=== PATIENT | female | born 1930 | race Caucasian/White ===

== ENCOUNTER → 2016-08-07 | Outpatient (CLI) | payer MEDICARE, BC ==
--- NOTE | 2016-08-07 12:22 | MR ---
EXAMINATION TYPE: MR brain/cspine wo/w DATE OF EXAM: 08/07/2016 11:43 AM COMPARISON: NONE HISTORY: Breast cancer and hallucinations per order. Left-sided headache with pain in neck for 3 melanie hs per patient. TECHNIQUE: Multiplanar, multisequence images of the cervical spine, brain, and brainstem are all performed witho ut and with IV contrast, utilizing 14 mL intravenous MultiHance . FINDINGS: Exam is noted suboptimal secondary to patient motion BRAIN: Diffusion weighted images demonstrate no evidence of a recent infarct or other diffusion abnormality. There is no worrisome extra-axial fluid collection. There is ventricular and sulcal prominence cons istent with mild age-related cerebral atrophy. There are focal and confluent areas of T2 hyperintensi ty seen throughout the deep and periventricular white matter bilaterally. Lesions are nonspecific in appearance and distribution but most likely on basis of product of chronic small vessel ischemic bailey ge in patient of this age. Midline structures demonstrate normal morphology. The craniocervical junction appears within normal limits. Post contrast images demonstrate no abnormal enhancement. The dural venous sinuses appear pa tent. The visualized sinuses are clear and the globes are intact. IMPRESSION: Mild age-related cerebral atrophy and advanced nonspecific white matter changes likely on basis of product of chronic small vessel ischemic change in patient of this age. No suspicious enhan cing intraparenchymal mass is noted. C-SPINE: FINDINGS: Sagittal images of the cervical spine show the craniocervical junction to appear within nor mal limits. The cervical and upper thoracic spinal cord is normal in course, caliber, and signal. V ertebral alignment is anatomic. The vertebral body heights are normal. There is moderate disc space narrowing C3-C4 level and C6-C7 level. Posterior disc herniations are seen effacing anterior thecal s ac at C5-C6 and C6-C7 level on sagittal images. The bone marrow signal intensity is within normal mtz its. No suspicious postcontrast enhancement is seen. No significant spurring is noted. Axial images show the C2-C3 and C3-C4 levels to appear within normal limits. Axial images at C4-C5 level show uncovertebral facet degenerative changes bilaterally with asymmetric mild left-sided neural foraminal narrowing. There is broad-based central disc protrusion minimally e ffacing anterior thecal sac. Axial images at C5-C6 level shows central broad-based disc protrusion effacing anterior thecal sac u p to ventral surface of spinal cord on axial image 20 and causing asymmetric moderate left and mild r ight-sided neural foraminal narrowing. Axial images at C6-C7 level show broad-based posterior disc protrusion effacing anterior thecal sac a nd causing mild left greater than right neural foraminal narrowing near axial image 15. Axial images at C7-T1 level are felt within normal limits. There is 8mm T2 round hyperintense lesion in left thyroid lobe on axial image 9 but is showing fairly homogeneous postcontrast enhancement and thus warrants follow-up. IMPRESSION: 1. Multilevel degenerative changes in cervical spine most prominent at C5-C6 and C6-C7 level as detai led above. 2. Enhancing 8 mm nodule left thyroid lobe, thyroid ultrasound follow-up advised to better evaluate a nd characterize.
== END ==
LOC: RADMRIMAIN 10:10
PROVIDERS: ATTEND Internal Medicine Hematology & Oncology
DX: R44.2 Other hallucinations (principal); M50.31 Other cervical disc degeneration, high cervical region; E04.1 Nontoxic single thyroid nodule
CPT/HCPCS: 70553; 72156; A9577

== ENCOUNTER 2019-02-04 22:09 | Emergency (ER) | payer MEDICARE, BC ==
[2019-02-04 22:14] VITALS: RESP 18; TEMP 97.9
[2019-02-04] MEDS ORDERED: MORPHINE SULFATE 4 MG/ML SYRINGE IV STA (22:57)
[2019-02-04 23:13] LABS: Albumin 3.9 g/dL (3.5-5.0); Calcium 9.8 mg/dL (8.4-10.2); Potassium 4.4 mmol/L (3.5-5.1); Total Bilirubin 0.1 mg/dL (0.2-1.3); Total Protein 6.6 g/dL (6.3-8.2)
[2019-02-04 23:17] LABS: Basophils % (A) 1 %; Eosinophils # (A) 0.1 k/uL (0-0.7); Eosinophils % (A) 2 %; HCT 37.8 % (34.0-46.0); HGB 12.1 gm/dL (11.4-16.0); Hypochromasia Slight; Lymphocytes % (A) 19 %; MCV 141.9 fL (80.0-100.0); Macrocytosis Marked; Mean Platelet Volume 6.2; Monocytes # (A) 0.3 k/uL (0-1.0); Monocytes % (A) 5 %; Neutrophils # (A) 3.9 k/uL (1.3-7.7); Neutrophils % (A) 70 %; Platelet Count 689 k/uL (150-450); RBC 2.66 m/uL (3.80-5.40); RDW 14.2 % (11.5-15.5); WBC 5.5 k/uL (3.8-10.6)
[2019-02-04 23:19] LABS: MCH 45.3 pg (25.0-35.0)
--- NOTE | 2019-02-04 23:22 | CT ---
EXAMINATION TYPE: CT brain wo con for TPA DATE OF EXAM: 02/04/2019 COMPARISON: HISTORY: Right-sided weakness CT DLP: mGycm Automated exposure control for dose reduction was used. FINDINGS: There is some patchy hypodensity in the periventricular white matter. There is no mass effect nor mid line shift. There is no sign of intracranial hemorrhage. Calvarium is intact. 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 IMPRESSION: CHRONIC SMALL VESSEL ISCHEMIA. NO ACUTE INTRACRANIAL ABNORMALITY.
[2019-02-04 23:24] LABS: INR 0.9 (<1.2); Prothrombin Time 9.7 sec (9.0-12.0)
--- NOTE | 2019-02-04 23:24 | XR ---
EXAMINATION TYPE: XR chest 1V portable DATE OF EXAM: 02/04/2019 COMPARISON: NONE HISTORY: Altered mental status TECHNIQUE: Single frontal view of the chest is obtained. FINDINGS: Heart is normal. There is no heart failure. Lungs are clear of consolidation. There is no pleural effusion. There are numerous surgical clips at the left axilla. IMPRESSION: No active cardiopulmonary disease. Normal heart.
[2019-02-04 23:31] VITALS: PULSE 80
--- NOTE | 2019-02-05 00:02 | ED ---
General Adult HPI - General Chief complaint: Extremity Problem,Nontraumatic Stated complaint: Arm pain Time Seen by Provider: 02/04/19 22:21 Source: patient Mode of arrival: wheelchair Limitations: no limitations - History of Present Illness Initial comments: This patient is an 88-year-old woman presenting to be evaluated for right arm and right leg numbness. The patient states that it started approximately one hour ago. She states that it did remind her of a previous stroke that she had over 20 years ago though at that time she had weakness. Patient states that she took an aspirin, and then her family felt she should be seen in the emergency d epartment. The patient states that her symptoms have completely resolved now. She did not have weakness at the time. She is not having headache or any other neurologic symptoms. Onset/Timin -: hour(s) Location: right, upper extremity, lower extremity Radiation: non-radiation Consistency: now resolved Improves with: other Worsens with: none (Continuously) Associated Symptoms: denies other symptoms Treatments Prior to Arrival: Aspirin - Related Data Home Medications Medication Instructions Recorded Confirmed Aspirin 325 mg PO DAILY 02/04/19 02/04/19 Benazepril HCl 20 mg PO DAILY 02/04/19 02/04/19 Calcium Citrate 200mg 200 mg PO DAILY 02/04/19 02/04/19 Cholecalciferol [Vitamin D3 (25 1,000 unit PO DAILY 02/04/19 02/04/19 Mcg = 1000 Iu)] Hydroxyurea [Hydrea] 500 mg PO DAILY 02/04/19 02/04/19 Vit C/E/Zn/Coppr/Lutein/Zeaxan 1 cap PO BID 02/04/19 02/04/19 [Preservision Areds 2 Softgel] amLODIPine [Norvasc] 10 mg PO DAILY 02/04/19 02/04/19 Allergies Allergy/AdvReac Type Severity Reaction Status Date / Time codeine Allergy Unknown Verified 02/04/19 22:23 Penicillins Allergy Unknown Verified 02/04/19 22:23 Latex, Natural Rubber AdvReac Rash/Hives Verified 02/04/19 22:23 Review of Systems ROS Statement: Those systems with pertinent positive or pertinent negative responses have been documented in the HPI. ROS Other: All systems not noted in ROS Statement are negative. Constitutional: Denies: fever, chills, weakness Eyes: Denies: eye pain, vision change Respiratory: Denies: cough, dyspnea Cardiovascular: Denies: chest pain, palpitations, syncope Gastrointestinal: Denies: abdominal pain, nausea, vomiting Genitourinary: Denies: dysuria, frequency Musculoskeletal: Denies: back pain Skin: Denies: rash Neurological: Reports: numbness. Denies: headache, weakness, confusion, abnormal gait, vertigo Hematological/Lymphatic: Denies: easy bleeding Past Medical History Past Medical History: Cancer, CVA/TIA Additional Past Medical History / Comment(s): breast cancer History of Any Multi-Drug Resistant Organisms: None Reported Past Surgical History: Orthopedic Surgery Past Psychological History: No Psychological Hx Reported Smoking Status: Current every day smoker Past Alcohol Use History: Occasional Past Drug Use History: None Reported General Exam Limitations: no limitations General appearance: alert, in no apparent distress Head exam: Present: atraumatic, normocephalic Eye exam: Present: normal appearance. Absent: scleral icterus, conjunctival injection ENT exam: Present: normal oropharynx Neck exam: Present: normal inspection, other (No carotid bruit) Respiratory exam: Present: normal lung sounds bilaterally. Absent: respiratory distress, wheezes, rales, rhonchi, stridor Cardiovascular Exam: Present: regular rate, normal rhythm, normal heart sounds. Absent: systolic murmur, diastolic murmur, rubs, gallop GI/Abdominal exam: Present: soft. Absent: distended, tenderness, guarding, rebound Extremities exam: Present: normal inspection, normal capillary refill. Absent: pedal edema, calf tenderness Back exam: Present: normal inspection. Absent: CVA tenderness (R), CVA tenderness (L) Neurological exam: Present: alert, oriented X3, CN II-XII intact. Absent: motor sensory deficit Skin exam: Present: warm, dry, intact, normal color. Absent: rash Course Vital Signs 02/04/19 02/04/19 22:10 23:29 Temperature 97.9 F Pulse Rate 96 80 Respiratory 18 18 Rate Blood Pressure 164/80 149/75 O2 Sat by Pulse 98 98 Oximetry EKG Findings - EKG Comments: EKG Findings:: Possible old inferior infarct, based on Q waves in lead III. - EKG Results: EKG: interpreted by ERMD, sinus rhythm (Rate 77 bpm), normal axis, normal ST/T Medical Decision Making - Medical Decision Making Patient is an 88-year-old woman presenting with right-sided numbness consistent with TIA. The patient's ABCD 2 score is indicative of low risk. The patient states that she does want to go home and she does not want stay in the hospital to have neurology evaluation. I discussed the appropriate follow-up and further care, and she is aware that she needs to return immediately should she experience any recurrence or if any new symptoms develop. - Lab Data Result diagrams: 02/04/19 22:53 02/04/19 22:53 Lab Results 02/04/19 02/04/19 02/04/19 Range/Units 22:53 22:53 22:53 WBC 5.5 (3.8-10.6) k/uL RBC 2.66 L (3.80-5.40) m/uL Hgb 12.1 (11.4-16.0) gm/dL Hct 37.8 (34.0-46.0) % MCV 141.9 H (80.0-100.0) fL MCH 45.3 H (25.0-35.0) pg MCHC 32.0 (31.0-37.0) g/dL RDW 14.2 (11.5-15.5) % Plt Count 689 H (150-450) k/uL Neutrophils % 70 % Lymphocytes % 19 % Monocytes % 5 % Eosinophils % 2 % Basophils % 1 % Neutrophils # 3.9 (1.3-7.7) k/uL Lymphocytes # 1.0 (1.0-4.8) k/uL Monocytes # 0.3 (0-1.0) k/uL Eosinophils # 0.1 (0-0.7) k/uL Basophils # 0.0 (0-0.2) k/uL Manual Slide Review Performed Hypochromasia Slight Macrocytosis Marked A PT 9.7 (9.0-12.0) sec INR 0.9 (<1.2) APTT 24.0 (22.0-30.0) sec Sodium 140 (137-145) mmol/L Potassium 4.4 (3.5-5.1) mmol/L Chloride 107 (98-107) mmol/L Carbon Dioxide 26 (22-30) mmol/L Anion Gap 7 mmol/L BUN 20 H (7-17) mg/dL Creatinine 0.74 (0.52-1.04) mg/dL Est GFR (CKD-EPI)AfAm 86 (>60 ml/min/1.73 sqM) Est GFR (CKD-EPI)NonAf 74 (>60 ml/min/1.73 sqM) Glucose 116 H (74-99) mg/dL Calcium 9.8 (8.4-10.2) mg/dL Total Bilirubin 0.1 L (0.2-1.3) mg/dL AST 19 (14-36) U/L ALT 16 (9-52) U/L Alkaline Phosphatase 124 (38-126) U/L Troponin I (0.000-0.034) ng/mL Total Protein 6.6 (6.3-8.2) g/dL Albumin 3.9 (3.5-5.0) g/dL 02/04/19 Range/Units 22:53 WBC (3.8-10.6) k/uL RBC (3.80-5.40) m/uL Hgb (11.4-16.0) gm/dL Hct (34.0-46.0) % MCV (80.0-100.0) fL MCH (25.0-35.0) pg MCHC (31.0-37.0) g/dL RDW (11.5-15.5) % Plt Count (150-450) k/uL Neutrophils % % Lymphocytes % % Monocytes % % Eosinophils % % Basophils % % Neutrophils # (1.3-7.7) k/uL Lymphocytes # (1.0-4.8) k/uL Monocytes # (0-1.0) k/uL Eosinophils # (0-0.7) k/uL Basophils # (0-0.2) k/uL Manual Slide Review Hypochromasia Macrocytosis PT (9.0-12.0) sec INR (<1.2) APTT (22.0-30.0) sec Sodium (137-145) mmol/L Potassium (3.5-5.1) mmol/L Chloride (98-107) mmol/L Carbon Dioxide (22-30) mmol/L Anion Gap mmol/L BUN (7-17) mg/dL Creatinine (0.52-1.04) mg/dL Est GFR (CKD-EPI)AfAm (>60 ml/min/1.73 sqM) Est GFR (CKD-EPI)NonAf (>60 ml/min/1.73 sqM) Glucose (74-99) mg/dL Calcium (8.4-10.2) mg/dL Total Bilirubin (0.2-1.3) mg/dL AST (14-36) U/L ALT (9-52) U/L Alkaline Phosphatase (38-126) U/L Troponin I <0.012 (0.000-0.034) ng/mL Total Protein (6.3-8.2) g/dL Albumin (3.5-5.0) g/dL Disposition Clinical Impression: TIA (transient ischemic attack) Disposition: HOME SELF-CARE Condition: Good Instructions (If sedation given, give patient instructions): Transient Ischemic Attack (ED) Is patient prescribed a controlled substance at d/c from ED?: No Referrals: Lyle Almazna DO [Primary Care Provider] - 1-2 days Fredo Villanueva MD [STAFF PHYSICIAN] - 1-2 days
[2019-02-05 00:30] VITALS: BP 146/72
== END 2019-02-05 00:30 | disposition home or self-care (01) ==
LOC: EC 22:09
DX: G45.9 Transient cerebral ischemic attack, unspecified (principal); F17.200 Nicotine dependence, unspecified, uncomplicated; Z79.899 Other long term (current) drug therapy; Z79.82 Long term (current) use of aspirin; Z88.5 Allergy status to narcotic agent; Z88.0 Allergy status to penicillin; Z91.040 Latex allergy status; Z85.3 Personal history of malignant neoplasm of breast; Z53.20 Procedure and treatment not carried out because of patient's decision for unspecified reasons
CPT/HCPCS: 36415; 70450; 71045; 80053; 84484; 85025; 85610; 85730; 93005; 99284